=== PATIENT | male | born 1960 | race Caucasian/White ===

== ENCOUNTER → 2022-03-14 | Outpatient (CLI) | payer OTHER ==
--- NOTE | 2022-03-14 09:16 | Diagnostic Imaging Report ---
PROCEDURE: MRI left joint lower extremity without contrast. TECHNIQUE: Multiplanar, multisequence non contrast-enhanced MRI of the left lower extremity was accomplished. INDICATION: Twisting injury. Knee pain EXAMINATION: Left knee MRI without contrast from 03/14/22. FINDINGS: The extensor mechanism appears intact. ACL and PCL intact. MCL and lateral collateral ligamentous complex intact. There is a tear throughout the posterior horn body and anterior horn of the medial meniscus which extends down to the tibial surface. The lateral meniscus appears intact. Cartilage within the patellofemoral joint is maintained. Mild thinning of cartilage in medial compartment is noted with the lateral compartment cartilage maintained. There is a small to moderate joint effusion. No acute osseous abnormality. IMPRESSION: 1. Diffuse tear involving the entire medial meniscus most pronounced within the posterior horn. Lateral meniscus intact. 2. Ligaments and tendons intact. 3. Degenerative findings predominantly within the medial joint compartment as above. Dictated by: Dictated on workstation # [id number]
== END ==
LOC: RAD 03-13 09:30
PROVIDERS: ATTEND Physician Assistant
DX: S83.242A Other tear of medial meniscus, current injury, left knee, initial encounter (principal); M17.12 Unilateral primary osteoarthritis, left knee; X58.XXXA Exposure to other specified factors, initial encounter
CPT/HCPCS: 73721